=== PATIENT | female | born 1970 | race Caucasian/White ===

== ENCOUNTER 2018-11-15 09:34 | Emergency (ER) | payer OTHER ==
--- OUTSIDE RECORDS SUMMARY | 2018-11-15 09:36 | XMS REPORT | Summary of Care ---
:1970 Author Organization [facility] - Health Address [address] [place] [address] Care Team Providers Name Role Phone Becky Boyd Primary Care Provider Reason for Referral Radiology Services (Routine) Status Reason Specialty Diagnoses / Referred By Referred To Procedures Contact Contact New Request Diagnostic Diagnoses Acute viral syndrome Herbie Rubalcava, Radiology Procedures XR CHEST 1 VW DO [address] [place] [address]. [address] [place] [id number] Radiology Services (Routine) Status Reason Specialty Diagnoses / Referred By Referred To Procedures Contact Contact New Request Diagnostic Diagnoses Acute viral syndrome Herbie Rubalcava, Radiology Procedures XR CHEST 1 VW DO [address] [place] [address]. [address] [place] [address] Reason for Visit Reason Comments Cough Auth/Cert Status Reason Specialty Diagnoses / Referred By Referred To Procedures Contact Contact [facility] [address] [place] [address] [place] [address] Encounter Details Date Type Department Care Team Description 11/02/2018 Emergency [facility] Herbie Rubalcava DO Acute viral syndrome (Primary Dx); Department [address] [place] [address]. Pharyngitis, unspecified etiology [address] [place] [address] Dr MOREIRA [address] [place] [address] [place], [place] [id number] Allergies Active Allergy Reactions Severity Noted Date Comments Clarithromycin Palpitations 01/09/2015 Clindamycin Palpitations 01/09/2015 Erythromycin Palpitations 01/09/2015 Penicillin Unknown - See comments 01/09/2015 Azithromycin Palpitations 01/09/2015 documented as of this encounter (statuses as of 11/02/2018) Medications Medication Sig Dispensed Refills Start Date End Date Status busPIRone (BUSPAR) 10 mg Take 1 Tab by 90 Tab 12 01/17/2015 Active tabletIndications: mouth 3 (three) Anxiety attack times daily. propranolol (INDERAL) 10 Take daily prn 30 Tab 5 01/17/2015 Active mg tabletIndications: panic attacks Anxiety attack with tachycardia omeprazole (PRILOSEC) 40 Take 1 Cap by 30 Cap 12 03/15/2015 Active mg capsuleIndications: mouth daily. Gastroesophageal reflux disease without esophagitis SERTraline (ZOLOFT) 25 Take 1 Tab by 30 Tab 12 03/15/2015 Active mg tabletIndications: mouth daily. Anxiety chlorpheniramine 4 mg Take 1 tablet by 30 tablet 0 11/02/2018 Active tabletIndications: Acute mouth every 6 viral syndrome (six) hours as needed for Allergies or Runny nose. naproxen sodium (ANAPROX Take 1 tablet by 30 tablet 0 11/02/2018 Active DS) 550 mg mouth 2 (two) tabletIndications: Acute times daily with viral syndrome meals. methylPREDNISolone Take by mouth 21 Each 0 11/02/2018 Active (MEDROL, SAMIR,) 4 mg SEE-INSTRUCTIONS tabletsIndications: . follow package Acute viral syndrome directions benzonatate 100 mg Take 1 capsule 14 capsule 0 11/02/2018 Active capsuleIndications: by mouth 3 Acute viral syndrome (three) times daily as needed for Cough. documented as of this encounter (statuses as of 11/02/2018) Active Problems Problem Noted Date Anxiety 01/17/2015 Gastroesophageal reflux disease without esophagitis 01/17/2015 documented as of this encounter (statuses as of 11/02/2018) Social History Tobacco Use Types Packs/Day Years Used Date Current Every Day Smoker Cigarettes 0.5 20 Smokeless Tobacco: Never Used Alcohol Use Drinks/Week oz/Week Comments Yes 6 Cans of beer 3.6 0 Standard drinks or equivalent Sex Assigned at Date Recorded Not on file Job Start Date Occupation Industry Not on file Not on file Not on file Travel History Travel Start Travel End No recent travel history available. documented as of this encounter Last Filed Vital Signs Vital Sign Reading Time Taken Comments Blood Pressure 105/60 11/02/2018 6:04 AM CDT Pulse 69 11/02/2018 6:04 AM CDT Temperature 36.6 C (97.8 F) 11/02/2018 6:04 AM CDT Respiratory Rate 20 11/02/2018 6:04 AM CDT Oxygen Saturation 97% 11/02/2018 6:04 AM CDT Inhaled Oxygen Concentration - - Weight 57.6 kg (127 lb) 11/02/2018 6:05 AM CDT Height - - Body Mass Index 23.23 03/15/2015 11:22 AM [employer] documented in this encounter Discharge Instructions Herbie Castellanos DO - 11/02/2018 DIAGNOSIS Diagnoses that have been ruled out: None Diagnoses that are still under consideration: None Final diagnoses: Pharyngitis, unspecified etiology Acute viral syndrome NO LIFE-THREATENING FINDINGS ON TODAY'S EXAM. PROCEDURES IN THE ER TODAY: Orders Placed This Encounter Procedures XR CHEST 1 VW RAPID STREP SCREEN FOR GROUP A MEDICATIONS ADMINISTERED IN THE ER TODAY AND DISCHARGE MEDICATIONS: Orders Placed This Encounter Medications dexamethasone (DECADRON PHOSPHATE) injection 10 mg chlorpheniramine 4 mg tablet naproxen sodium (ANAPROX DS) 550 mg tablet methylPREDNISolone (MEDROL, SAMIR,) 4 mg tablets benzonatate 100 mg capsule FOLLOW-UP RECOMMENDATIONS: RECOMMEND FOLLOW-UP WITH A PRIMARY CARE PROVIDER OR SPECIALIST IN 2-5 DAYS, ESPECIALLY IF NO IMPROVEMENT IN SYMPTOMS. MAY FOLLOW-UP WITH A PROVIDER OF YOUR CHOICE, SUCH : 1. A PHYSICIAN OF YOUR CHOICE 2. [facility], . LOCATIONS IN [facility] 3. [facility], [address] [place] [address]; OR, IF YOU WISH TO FOLLOW-UP WITHIN THE [facility], MAY TRY THESE OPTIONS (CLINIC APPOINTMENTS AVAILABLE ON [id number] BASIS): 1. SCHEDULE AN APPOINTMENT ONLINE AT WWW[facility] 2. OR CALL THE [facility] ACCESS CENTER AT OR 3. OR CALL YOUR [facility] PHYSICIAN'S OFFICE DIRECTLY IF YOU ARE ALREADY AN ESTABLISHED [facility] PATIENT. RETURN TO ER FOR WORSENING OF SYMPTOMS. AttachmentsThe following attachments cannot be sent through Care Everywhere.Viral Syndrome (Adult) (Monegasque)documented in this encounter Plan of Treatment Name Type Priority Associated Diagnoses Date/Time XR CHEST 1 VW IMAGING Routine Acute viral syndrome 11/02/2018 6:36 AM CDT THROAT CULTURE LAB STAT Pharyngitis, unspecified 11/02/2018 6:13 AM CDT etiology Name Type Priority Associated Diagnoses Order Schedule THROAT CULTURE LAB Routine Pharyngitis, unspecified ONCE for 1 Occurrences etiology starting 11/02/2018 until 11/02/2018 Health Maintenance Due Date Last Done Comments PNEUMOCOCCAL 0-64 YEARS COMBINED SERIES (1 of - 1977 PPSV23) DTaP,Tdap,and Td Vaccines (1 - Tdap) 1990 PAP SMEAR 01/02/1992 MAMMOGRAM 2011 INFLUENZA VACCINE 11/29/2018 documented as of this encounter Procedures Procedure Name Priority Date/Time Associated Diagnosis Comments XR CHEST 1 VW Routine 11/02/2018 6:36 AM CDT Acute viral syndrome Procedure Note - [facility], Radiant Results Inft User - 11/02/2018 6:39 AM CDT * * * * * * * * ORIGINAL REPORT * * * * * * * * EXAM: XR CHEST 1 VW COMPARISON: 01/11/2015 HISTORY: cough FINDINGS: Lungs: The lungs are clear. No pleural effusion or pneumothorax is identified. Heart/Mediastinum: The cardiomediastinal silhouette is normal in size. Bones: No acute osseous abnormality is seen. IMPRESSION No radiographic evidence of acute cardiopulmonary process. RAPID STREP SCREEN STAT 11/02/2018 6:13 AM Pharyngitis, Results for this FOR GROUP A CDT unspecified etiology procedure are in the results section. NOTICE OF PRIVACY Routine 11/02/2018 5:57 AM PRACTICES CDT documented in this encounter Results RAPID STREP SCREEN FOR GROUP A (11/02/2018 6:13 AM CDT) Streptococcus pyogenes Negative Negative [facility] (group A) antigen [facility] Specimen Swab - THROAT Performing Organization Address City/State/Zipcode Phone Number [facility] CLIA: [id number], [address] [place] [address] documented in this encounter Visit Diagnoses Diagnosis Acute viral syndrome - Primary Pharyngitis, unspecified etiology documented in this encounter Administered Medications Medication Order MAR Action Action Date Dose Rate Site dexamethasone (DECADRON PHOSPHATE) Given 11/02/2018 6:14 AM CDT 10 mg injection 10 mg 10 mg, Oral, ONCE, 1 dose, 11/02/18 at 0715, Routine documented in this encounter documented as of this encounter
--- OUTSIDE RECORDS SUMMARY | 2018-11-15 09:36 | XMS REPORT ---
:1970 [facility] Address [address] [place] [address] Dr. Iqbal [address] [place] [address] Care Team Providers Name Role Phone Unavailable Unavailable Unavailable Problems This patient has no known problems. Allergies, Adverse Reactions, Alerts This patient has no known allergies or adverse reactions. Medications This patient has no known medications.
--- OUTSIDE RECORDS SUMMARY | 2018-11-15 09:37 | XMS REPORT ---
:1970 Author Organization [employer] Care Team Providers Name Role Phone Aakash Becky Provider Role Unavailable Allergies, Adverse Reactions, Alerts Substance Reaction Event Type clindamycin Info Not Available Drug Allergy PCN Info Not Available Drug Allergy Erythromycin Info Not Available Drug Allergy Problems Problem Type Condition Code Onset Dates Condition Status Problem Postnasal drip R09.82 Active Problem History of gastritis Z87.19 Active Assessment History of gastritis Z87.19 Active Assessment Epigastric pain R10.13 Active Assessment Postnasal drip R09.82 Active Assessment Depression with anxiety F41.8 Active Problem Anxiety F41.9 Active Problem Depression F32.9 Active Problem Hyperlipidemia E78.5 Active Problem Cancer C80.1 Active Problem Sinus problem J34.9 Active Problem Epigastric pain R10.13 Active Problem Depression with anxiety F41.8 Active Medications Medication Code Code Instructions Start End Status Dosage System Date Date BusPIRone HCl ND 31901956521 7.5 MG Orally Nov 10, Active 1 tablet Twice a day 2018 as needed for anxiety Clonazepam ND 81253907910 0.5 MG Orally Active 1 tablet Once a day at bedtime Sertraline HCl ND 27747974172 100 MG Orally Active 1 tablet Once a day Omeprazole ND 31132189660 20 MG Orally Nov 10, Active 1 capsule Once a day 2018 Results No Known Results Summary Purpose [employer] Submission
--- OUTSIDE RECORDS SUMMARY | 2018-11-15 09:37 | XMS REPORT | Summary of Care ---
:1970 Author Organization [facility] - Health Address [address] [place] [address] Care Team Providers Name Role Phone Becky Boyd Suha Primary Care Provider Reason for Referral Radiology Services (STAT) Status Reason Specialty Diagnoses / Referred By Referred To Procedures Contact Contact New Request Diagnostic Diagnoses Chest pain, unspecified type Deshawn Piña, Radiology Procedures XR ABDOMEN ACUTE SERIES [address] [place] [address] [address] [place] [address] Radiology Services (STAT) Status Reason Specialty Diagnoses / Referred By Referred To Procedures Contact Contact New Request Diagnostic Diagnoses Chest pain, unspecified type Deshawn Piña, Radiology Procedures XR ABDOMEN ACUTE SERIES [address] [place] [address] [place] [address] Reason for Visit Reason Comments Chest Pain Auth/Cert Status Reason Specialty Diagnoses / Referred By Referred To Procedures Contact Contact [facility] [address] [place] [address] [place] [address] Encounter Details Date Type Department Care Team Description 11/13/2018 Emergency [facility] Deshawn Piña MD Chest pain, Department [address] [place] [address] unspecified type [address] [place] [address] [address] (Primary Dx) [place] [address] [place] [address] [phone] Allergies Active Allergy Reactions Severity Noted Date Comments Clarithromycin Palpitations 01/09/2015 Clindamycin Palpitations 01/09/2015 Erythromycin Palpitations 01/09/2015 Penicillin Unknown - See comments 01/09/2015 Azithromycin Palpitations 01/09/2015 documented as of this encounter (statuses as of 11/13/2018) Medications Medication Sig Dispensed Refills Start Date [...] (three) times daily as needed for Cough. sucralfate 1 gram Take 1 tablet by 30 tablet 0 11/13/2018 Active tabletIndications: Chest mouth before pain, unspecified type meals and at bedtime. ondansetron 4 mg Take 1 tablet by 20 tablet 0 11/13/2018 Active disintegrating mouth every 4 tabletIndications: Chest (four) hours as pain, unspecified type needed for Nausea and Vomiting (N/V). Pantoprazole (PROTONIX) Take 40 mg by 30 mg 0 11/13/2018 Active 40 mg delayed-release mouth daily. suspensionIndications: Chest pain, unspecified type documented as of this encounter (statuses as of 11/13/2018) Active Problems Problem Noted Date Anxiety 01/17/2015 Gastroesophageal reflux disease without esophagitis 01/17/2015 documented as of this encounter (statuses as of 11/13/2018) Social History Tobacco Use Types Packs/Day Years [...] Sign Reading Time Taken Comments Blood Pressure 110/71 11/13/2018 10:07 AM CDT Pulse 66 11/13/2018 10:07 AM CDT Temperature 36.5 C (97.7 F) 11/13/2018 7:41 AM CDT Respiratory Rate 16 11/13/2018 10:07 AM CDT Oxygen Saturation 97% 11/13/2018 10:07 AM CDT Inhaled Oxygen Concentration - - Weight 60.8 kg (134 lb) 11/13/2018 7:41 AM CDT Height - - Body Mass Index 24.51 03/15/2015 11:22 AM HOME COMPANION documented in this encounter Discharge Instructions InstructionsNeDeshawn maya MD - 11/13/2018 RETURN FOR ANY QUESTIONS OR CONCERNS Today you were seen by Deshawn Piña Jr., MD You were seen today for Chief Complaint Patient presents with Chest Pain Your ER diagnosis was ICD-10-CM ICD-9-CM 1. Chest pain, unspecified type R07.9 786.50 NO LIFE-THREATENING FINDINGS ON TODAY'S EXAM. YOUR PRESCRIPTIONS : Check out [employer] for medication discounts Medication List ASK your doctor about these medications benzonatate 100 mg capsule Commonly known as: TESSALON PERLES Take 1 capsule by mouth 3 (three) times daily as needed for Cough. busPIRone 10 mg tablet Commonly known as: BUSPAR Take 1 Tab by mouth 3 (three) times daily. chlorpheniramine 4 mg tablet Commonly known as: CHLOR-TRIMETON Take 1 tablet by mouth every 6 (six) hours as needed for Allergies or Runny nose. methylPREDNISolone 4 mg tablets Commonly known as: MEDROL (SAMIR) Take by mouth SEE-INSTRUCTIONS. follow package directions naproxen sodium 550 mg tablet Commonly known as: ANAPROX DS Take 1 tablet by mouth 2 (two) times daily with meals. omeprazole 40 mg capsule Commonly known as: PRILOSEC Take 1 Cap by mouth daily. propranolol 10 mg tablet Commonly known as: INDERAL Take daily prn panic attacks with tachycardia SERTraline 25 mg tablet Commonly known as: ZOLOFT Take 1 Tab by mouth daily. ER precautions and follow up : 1. Return to ER if your symptoms should worsen or fail to improve within 72 hours. 2. The care provided in the emergency room was for acute problems only. 3. You should follow up with your primary care provider within 72 hours. 4. Fill and take all your medications as prescribed. 5. Make sure you are staying adequately hydrated. Busque attencion immediatamente si usted tiene los sitomas sigue, vuelve peor o si hay sitomas nuevas o para cualquiera preoccupacion incluyendo dolor del pecho , falta aire, se siente debile, mas fievre, mas dolor, nausea, vomitando, sangrando que no es normal, confusion, baja or pierdas conciencia. MAY FOLLOW-UP WITH A PROVIDER OF YOUR CHOICE, SUCH : 1. A PHYSICIAN OF YOUR CHOICE 2. [facility], . LOCATIONS IN [facility] 3. [facility], [address] [place] [address]; OR, IF YOU WISH TO FOLLOW-UP WITHIN THE [facility], MAY TRY THESE OPTIONS (CLINIC APPOINTMENTS AVAILABLE ON [id number]-[id number] BASIS): 1. SCHEDULE AN APPOINTMENT ONLINE AT WWW[facility] 2. OR CALL THE [facility] AT OR 3. OR CALL YOUR [facility] PHYSICIAN'S OFFICE DIRECTLY IF YOU ARE ALREADY AN ESTABLISHED [facility] PATIENT. [facility] RETURN TO WORK / SCHOOL EXCUSE Tyra Kidd WAS SEEN IN THE ER AND DISCHARGED 11/13/2018 TODAY, 10:11 AM & May return to Work / School / Incarceration on X with activity as tolerated indicated below. ___The following limitations apply until pt is seen by Physician and cleared to return to normal activity. _X_ Off for two days and return to activity as tolerated at work or school ___ No Sports ___ No work ___ Do not return until fever free for 24 hours. ___ No school DESHAWN PIÑA Jr., MD [facility] DEPRT[facility] [address] [place] [address] [address] [address] ### The patient may have been given Narcotic pain medications during their stay in the ED that may show up on a Drug Screen. The hospital discharge paper work will identify these medications. documented in this encounter Plan of Treatment Health Maintenance Due Date Last Done Comments PNEUMOCOCCAL 0-64 YEARS COMBINED SERIES (1 of - 1977 PPSV23) DTaP,Tdap,and Td Vaccines (1 - Tdap) 1990 PAP SMEAR 01/02/1992 MAMMOGRAM 2011 INFLUENZA VACCINE (#1) 2018 documented as of this encounter Procedures Procedure Name Priority Date/Time Associated Diagnosis Comments XR ABDOMEN ACUTE STAT 11/13/2018 9:51 Chest pain, Results for this SERIES AM CDT unspecified type procedure are in the results section. CBC WITH DIFFERENTIAL STAT 11/13/2018 7:53 Chest pain, Results for this AM CDT unspecified type procedure are in the results section. ACTIVATED PARTIAL STAT 11/13/2018 7:53 Chest pain, Results for this THRMPLAS EDUARDO AM CDT unspecified type procedure are in the results section. PROTHROMBIN TIME / STAT 11/13/2018 7:53 Chest pain, Results for this INR AM CDT unspecified type procedure are in the results section. CBC WITH DIFF Routine 11/13/2018 7:53 Chest pain, Results for this AM CDT unspecified type procedure are in the results section. COMP. METABOLIC PANEL STAT 11/13/2018 7:53 Chest pain, Results for this (66088) AM CDT unspecified type procedure are in the results section. TROPONIN I STAT 11/13/2018 7:53 Chest pain, Results for this AM CDT unspecified type procedure are in the results section. LIPASE STAT 11/13/2018 7:53 Chest pain, Results for this AM CDT unspecified type procedure are in the results section. EKG-12 LEAD STAT 11/13/2018 7:52 AM CDT CONSENT/REFUSAL FOR Routine 11/13/2018 7:22 DIAGNOSIS AND AM CDT TREATMENT documented in this encounter Results XR ABDOMEN ACUTE SERIES (11/13/2018 9:51 AM CDT) Specimen Impressions Performed At FINDINGS/IMPRESSION: PACS/VR/DOSE The lungs are clear with no focal consolidation. No pleural effusion or pneumothorax is present. The heart is normal in size. The bowel gas pattern is non-obstructive. No evidence of free intra-abdominal air is present. A tiny calcified stone projects over the right kidney shadow, which may representnephrolithiasis. I reviewed this study and agree. Eliezer Lagos MD., have reviewed this study and agree with the above report. Narrative Performed At * * * * * * * * ORIGINAL REPORT * * * * * * * * PACS/VR/DOSE EXAM: XR ABDOMEN ACUTE SERIES HISTORY: 48 years-old Female presenting with vomiting COMPARISON: Chest x-ray on 11/02/2018. Procedure Note [facility], Radiant Results Inft User - 11/13/2018 10:19 AM CDT * * * * * * * * ORIGINAL REPORT * * * * * * * * EXAM: XR ABDOMEN ACUTE SERIES HISTORY: 48 years-old Female presenting with vomiting COMPARISON: Chest x-ray on 11/02/2018. IMPRESSION FINDINGS/IMPRESSION: The lungs are clear with no focal consolidation. No pleural effusion or pneumothorax is present. The heart is normal in size. The bowel gas pattern is non-obstructive. No evidence of free intra-abdominal air is present. A tiny calcified stone projects over the right kidney shadow, which may represent nephrolithiasis. I reviewed this study and agree. Eliezer Lagos MD., have reviewed this study and agree with the above report. Performing Organization Address City/State/Zipcode Phone Number PACS/VR/DOSE CBC WITH DIFFERENTIAL (11/13/2018 7:53 AM CDT) WBC 9.88 4.30 - 11.10 [facility] 10*3/L [facility] RBC 4.57 3.93 - 5.25 [facility] 10*6/L [facility] HGB 14.6 11.6 - 15.0 [facility] g/dL [facility]PITAL [facility] HCT 42.6 35.7 - 45.2 % [facility] MCV 93.2 80.6 - 95.5 fL [facility] MCH 31.9 25.9 - 32.8 pg [facility] MCHC 34.3 31.6 - 35.1 [facility] g/dL [facility] RDW-SD 41.2 39.0 - 49.9 fL [facility] RDW-CV 12.0 12.0 - 15.5 % [facility] PLT 285 166 - 358 [facility] 10*3/L [facility] MPV 9.8 9.5 - 12.9 fL [facility] NRBC/100 WBC 0.0 0.0 - 10.0 /100 [facility] WBCs [facility] NRBC x10^3 <0.01 10*3/L [facility] GRAN MAT (NEUT) % 79.8 % [facility] IMM GRAN % 0.40 % [facility] LYMPH % 14.9 % [facility] MONO % 4.1 % [facility] EOS % 0.4 % [facility] BASO % 0.4 % [facility] GRAN MAT x10^3(ANC) 7.88 (H) 1.88 - 7.09 [facility] 10*3/uL [facility] IMM GRAN x10^3 0.04 0.00 - 0.06 [facility] 10*3/uL [facility] LYMPH x10^3 1.47 1.32 - 3.29 [facility] 10*3/uL [facility] MONO x10^3 0.41 0.33 - 0.92 [facility] 10*3/uL [facility] EOS x10^3 0.04 0.03 - 0.39 [facility] 10*3/uL [facility] BASO x10^3 0.04 0.01 - 0.07 [facility] 10*3/uL [facility] Specimen Blood - ARM, RIGHT Performing Organization Address City/State/Zipcode Phone Number [facility] CLIA: [id number], [address] [place] [address] LIPASE, SERUM (11/13/2018 7:53 AM CDT) LIPASE 66 0 - 220 U/L [facility] Specimen Blood - ARM, RIGHT Performing Organization Address City/State/Zipcode Phone Number [facility] CLIA: [id number], [address] [place] [address] COMP. METABOLIC PANEL ([id number]) (11/13/2018 7:53 AM CDT) NA 144 135 - 145 [facility] mmol/L [facility] K 3.9 3.5 - 5.0 [facility] mmol/L [facility] CL 108 98 - 108 mmol/L [facility] CO2 TOTAL 26 23 - 31 mmol/L [facility] AGAP 10 2 - 16 [facility] BUN 7 7 - 23 mg/dL [facility] GLUCOSE 125 (H) 70 - 110 mg/dL [facility] CREATININE 0.69 0.50 - 1.04 [facility] mg/dL [facility] TOTAL BILI 0.5 0.1 - 1.1 mg/dL [facility] CALCIUM 8.9 8.6 - 10.6 [facility] mg/dL [facility] T PROTEIN 7.5 6.3 - 8.2 g/dL [facility] ALBUMIN 4.4 3.5 - 5.0 g/dL [facility] ALK PHOS 106 34 - 122 U/L [facility] ALT(SGPT) 37 9 - 51 U/L [facility] AST(SGOT) 24 13 - 40 U/L [facility] eGFR Calculation 91.2 mL/min/1.73m2 [facility] ([facility]ATORY [place]) eGFR Calculation 110.5 mL/min/1.73m2 [facility] () [facility] Specimen Blood - ARM, RIGHT Narrative Performed At Association of Glomerular Filtration Rate (GFR) [facility] and Staging of Kidney Disease* + + +- + | GFR (mL/min/1.73 m2)| With Kidney Damage|Without Kidney Damage + + +- + |>90| Stage one| Normal + + +- + |60-89|S tage two| Decreased GFR + + +- + |30-59|S tage three| Stage three + + +- + |15-29|S tage four | Stage four + + +- + |<15 (or dialysis)|Stage five | Stage five + + +- + *Each stage assumes the associated GFR level has been in effect for at least three months.Stages 1 to 5, with or without kidney disease, indicate chronic kidney disease. Notes: Determination of stages one and two (with eGFR >59mL/min/1.73 m2) requires estimation of kidney damage for at least three months as defined by structural or functional abnormalities of the kidney, manifested by either: Pathological abnormalities or Markers of kidney damage (including abnormalities in the composition of the blood or urine or abnormalities in imaging tests). Performing Organization Address [facility] Phone Number [facility] CLIA: [id number], [address] [place], [place] [address] [address] PROTHROMBIN TIME / INR (11/13/2018 7:53 AM CDT) Pathologist [facility] PROTIME PATIENT 13.3 12.0 - 14.7 [facility] LABORATORY INR 1.1Comment: Normal [facility] INR <1.1; Warfarin [facility] Therapeutic range LABORATORY 2.0 to 3.0 or 2.5 to 3.5, depending upon the indications. Specimen Blood - ARM, RIGHT Performing Organization Address [facility] Phone Number [facility] CLIA: [id number], [address] [place] [address] aPTT (11/13/2018 7:53 AM CDT) [facility] APTT Patient 27 23 - 38 Seconds [facility] Specimen Blood - ARM, RIGHT Narrative Performed At The [facility] patient population mean normal value [facility] for aPTT is 30 seconds. Performing Organization Address [facility] Phone Number [facility] CLIA: [id number], [address] [place] [address] TROPONIN I (11/13/2018 7:53 AM CDT) [facility] TROPONIN I <0.012 <=0.034 ng/mL [facility] Specimen Blood - ARM, RIGHT Narrative Performed At Equal or Less than 0.034 ng/ml---Normal [facility] Note: Cardiac troponin begins to rise 3-4 hours after the onset of ischemia. Repeat in 4-6 hours if the sample was drawn within 3-4 hours of the onset of the symptom and found normal. Between 0.035 and 0.120 ng/mL--- Borderline. Questionable myocardial injury or necrosis Note: Serial measurement may be necessary to confirm or exclude the diagnosis of myocardial injury or necrosis; Clinical correlation (symptoms, EKGs, imaging studies, and others) required; Repeat in 4-6 hours if clinically indicated. Equal or Higher than 0.121 ng/mL---Abnormal. Myocardial Injury or Necrosis Likely Biotin has been reported to cause a negative bias, interpret results relative to patient's use of biotin. Performing Organization Address City/State/Zipcode Phone Number [facility] CLIA: [id number], [address] [place] [address] [facility] documented in this encounter Visit Diagnoses Diagnosis Chest pain, unspecified type - Primary documented in this encounter Administered Medications Medication Order MAR Action Action Date Dose Rate Site sodium chloride (NS) injection 5 mL 5 mL, Intravenous, PRN, Starting Fri11/13/18 at 0751, Until Discontinued, Routine, IV line flushing Medication Order MAR Action Action Date Dose Rate Site aspirin tablet 325 mg Given 11/13/2018 7:54 AM CDT 325 mg 325 mg, Oral, ONCE, 1 dose, Fri11/13/18 at 0800, STAT maalox:diphenhydrAMINE:lidocaine2 %viscous Given 11/13/2018 8:22 AM CDT 15 mL 1:1:1: suspension (COMPOUNDED) 15 mL, Oral, ONCE, 1 dose, Fri11/13/18 at 0915, ERIKA morpHINE injection 4 mg Given 11/13/2018 8:22 AM CDT 4 mg 4 mg, Slow IV Push, ONCE, 1 dose, Fri11/13/18 at 0915, STAT ondansetron (ZOFRAN (PF)) injection 4 mg Given 11/13/2018 7:57 AM CDT 4 mg 4 mg, Slow IV Push, ONCE, 1 dose, Fri11/13/18 at 0900, ERIKA documented in this encounter documented as of this encounter"
[2018-11-15] MEDS ORDERED: ONDANSETRON 4 MG/2 ML VIAL ONE (09:53)
[2018-11-15] MEDS ORDERED: NA CHLORIDE 0.9% 1,000 ML ONE (09:54)
[2018-11-15 10:18] LABS: Absolute Lymphocytes (CBC) 1.4 K/uL (0.7-4.9); Basophils % 0.3 % (0-1.3); Hematocrit 44.1 % (36.0-45.0); Lymphocytes % 20.4 % (15.3-44.8); MPV 8.5 fL (7.6-11.3); RBC Red Blood Cell Count 4.74 M/uL (3.86-4.86)
[2018-11-15] MEDS ORDERED: FENTANYL CITR 100 MCG/2 ML ONE (10:20)
[2018-11-15 10:27] LABS: Bilirubin Direct 0.1 mg/dL (0-0.2); Bilirubin Total 0.4 mg/dL (0.2-1.0); Potassium 3.9 mmol/L (3.5-5.1); Protein, Total 7.5 g/dL (6.4-8.2)
[2018-11-15 10:43] LABS: Urine Bacteria 20-50 /HPF (<20); Urine Culture Reflex Order NOT NEEDED; Urine RBC >50 /HPF (NONE SEEN)
[2018-11-15 11:55] LABS: Urine Blood 3+ (NEG); Urine Glucose NEGATIVE (NEG); Urine Protein NEGATIVE (NEG); Urine Specific Gravity 1.015 (1.005-1.030)
[2018-11-15] MEDS ORDERED: levoFLOXacin 500 MG TAB ONE (12:03)
[2018-11-15] MEDS ORDERED: DICYCLOMINE HCL 10 MG CAP ONE (12:03)
[2018-11-15] MEDS ORDERED: PROMETHAZINE 25 MG TABLET ONE (13:00)
--- NOTE | 2018-11-15 13:02 | ER ---
Nurse's Notes [facility] Name: Tyra Kidd Age: 48 yrs Sex: Female : 1970 Arrival Date: 11/15/2018 Time: 09:36 Bed 6 Private MD: Diagnosis: Unspecified abdominal pain;Colic;Urinary tract infection, site not specified Presentation: 11/15 09:43 Presenting complaint: N/V and upper abdominal pain x 2 weeks, constipation x 1 week. hb Denies fever. Tolerating fluids. Transition of care: patient was not received from another setting of care. Onset of symptoms was November 01, 2018. Risk Assessment: Do you want to hurt yourself or someone else? Patient reports no desire to harm self or others. Initial Sepsis Screen: Does the patient meet any 2 criteria? No. Patient's initial sepsis screen is negative. Does the patient have a suspected source of infection? No. Patient's initial sepsis screen is negative. Care prior to arrival: None. 09:43 Method Of Arrival: Ambulatory hb 09:43 Acuity: NADYA 3 hb Triage Assessment: 09:46 General: Appears in no apparent distress. uncomfortable, Behavior is calm, cooperative. hb Pain: Pain currently is 5 out of 10 on a pain scale. EENT: No signs and/or symptoms were reported regarding the EENT system. Neuro: Level of Consciousness is awake, alert, obeys commands, Oriented to person, place, time, situation. Cardiovascular: Capillary refill < 3 seconds Patient's skin is warm and dry. Respiratory: Airway is patent Respiratory effort is even, unlabored, Respiratory pattern is regular, symmetrical. GI: Abdomen is non-distended. : No signs and/or symptoms were reported regarding the genitourinary system. Derm: Skin is pink, warm \T\ dry. Musculoskeletal: No signs and/or symptoms reported regarding the musculoskeletal system. 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 - Social history:: Smoking status: Patient uses tobacco products, smokes one pack cigarettes per day. - Ebola Screening: : No symptoms or risks identified at this time. Screenin:58 Abuse screen: Denies threats or abuse. Denies injuries from another. Nutritional hb screening: No deficits noted. Tuberculosis screening: No symptoms or risk factors identified. Fall Risk None identified. Assessment: 09:58 General: see triage assessment. hb 10:59 Reassessment: Patient appears in no apparent distress at this time. Patient and/or hb family updated on plan of care and expected duration. Pain level reassessed. Patient is alert, oriented x 3, equal unlabored respirations, skin warm/dry/pink. Vital Signs: 09:47 BP 124 / 66; Pulse 82; Resp 16; Temp 97.6(TE); Pulse Ox 99% on R/A; Weight 60.33 kg; hb Height 5 ft. 2 in. (157.48 cm); Pain 5/10; 10:57 BP 118 / 62; Pulse 77; Resp 15; Pulse Ox 100% on R/A; Pain 1/10; hb 09:47 Body Mass Index 24.33 (60.33 kg, 157.48 cm) hb ED Course: 09:36 Patient arrived in ED. as 09:43 Shyanne Chou, FRANCISCO is Primary Nurse. hb 09:44 Triage completed. hb 09:47 Arm band placed on. hb 09:51 Rosa Bullock FNP-C is PHCP. snw 09:51 Elier Hernandez MD is Attending Physician. snw 09:58 Patient has correct armband on for positive identification. Bed in low position. Call hb light in reach. Side rails up X 1. 09:58 Inserted saline lock: 22 gauge in right antecubital area, using aseptic technique. sv ,using aseptic technique. diffusics by Angelica SINGH Blood collected. 10:04 Door closed. Warm blanket given. Head of bed elevated. sv 11:07 US Abdomen Limited In Process Unspecified. EDMS 11:08 Ultrasound completed. Patient tolerated well. sg3 13:14 EKG done, by ED staff, reviewed by Rosa SANTANA. jb1 13:23 No provider procedures requiring assistance completed. IV discontinued, intact, ss bleeding controlled, No redness/swelling at site. Pressure dressing applied. Administered Medications: 09:58 Drug: NS 0.9% 1000 ml Route: IV; Rate: 75 ml/hr; Site: right antecubital; hb 13:10 Follow up: IV Status: IV converted to saline lock ss 10:24 Drug: fentaNYL (PF) 25 mcg Route: IVP; Site: right antecubital; hb 11:10 Follow up: Response: No adverse reaction; RASS: Alert and Calm (0) hb 12:11 Drug: Bentyl 20 mg Route: PO; hb 13:00 Follow up: Response: No adverse reaction hb 12:11 Drug: LevaQUIN 500 mg Route: PO; hb 13:00 Follow up: Response: No adverse reaction hb 13:01 Drug: Phenergan 25 mg Route: PO; hb 13:10 Follow up: Response: No adverse reaction; Nausea is decreased ss 13:09 Drug: CarafATE 1 grams Route: PO; ss 13:11 Follow up: Response: No adverse reaction; Medication administered at discharge. ss Outcome: 13:01 Discharge ordered by . snw 13:23 Discharged to home ambulatory. ss 13:23 Condition: good 13:23 Discharge instructions given to patient, family, Instructed on discharge instructions, follow up and referral plans. medication usage, Demonstrated understanding of instructions, follow-up care, medications, Prescriptions given X 2. 13:25 Patient left the ED. ss Signatures: Dispatcher [employer] EDMS Dion Evans jb1 Angelica Long, Rosa Hopson RN, FNP-C FNP-Matilde Brewer Shelby, RN RN Shyanne Chou RN RN Rosalina Dasilva sg3 Corrections: (The following items were deleted from the chart) 10:00 09:58 Inserted saline lock: 20 gauge in right antecubital area, using aseptic sv technique. ,using aseptic technique. by Angelica SINGH Blood collected. hb
--- NOTE | 2018-11-15 13:03 | EDPHYS ---
Physician Documentation [facility] – [place], [place] Name: Tyra Kidd Age: 48 yrs Sex: Female : 1970 Arrival Date: 11/15/2018 Time: 09:36 Bed 6 Private MD: ED Physician Elier Hernandez HPI: 11/15 10:17 This 48 yrs old Female presents to ER via Ambulatory with complaints of snw Abdominal Pain, Constipation, Nausea/Vomiting. 10:17 Onset: The symptoms/episode began/occurred gradually, 1.5 week(s) ago. The symptoms do snw not radiate. Associated signs and symptoms: Pertinent positives: nausea and vomiting, constipation. The symptoms are described as constant, steady. Severity of pain: At its worst the pain was moderate severe in the emergency department the pain is unchanged. It is unknown whether or not the patient has had similar symptoms in the past. pt has had 2 PCP appts and 2 ED visits for same in last 1.5 weeks. 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 - Social history:: Smoking status: Patient uses tobacco products, smokes one pack cigarettes per day. - Ebola Screening: : No symptoms or risks identified at this time. ROS: 10:16 Constitutional: Negative for fever, chills, and weight loss, Eyes: Negative for injury, snw pain, redness, and discharge, ENT: Negative for injury, pain, and discharge, Neck: Negative for injury, pain, and swelling, Cardiovascular: Negative for chest pain, palpitations, and edema, Respiratory: Negative for shortness of breath, cough, wheezing, and pleuritic chest pain, Back: Negative for injury and pain, : Negative for injury, bleeding, discharge, and swelling, MS/Extremity: Negative for injury and deformity, Skin: Negative for injury, rash, and discoloration, Neuro: Negative for headache, weakness, numbness, tingling, and seizure. 10:16 Abdomen/GI: Positive for abdominal pain, nausea and vomiting, constipation, abdominal cramps. Exam: 10:16 Constitutional: This is a well developed, well nourished patient who is awake, alert, snw and in no acute distress. Head/Face: Normocephalic, atraumatic. Eyes: Pupils equal round and reactive to light, extra-ocular motions intact. Lids and lashes normal. Conjunctiva and sclera are non-icteric and not injected. Cornea within normal limits. Periorbital areas with no swelling, redness, or edema. ENT: Nares patent. No nasal discharge, no septal abnormalities noted. Tympanic membranes are normal and external auditory canals are clear. Oropharynx with no redness, swelling, or masses, exudates, or evidence of obstruction, uvula midline. Mucous membranes moist. Neck: Trachea midline, no thyromegaly or masses palpated, and no cervical lymphadenopathy. Supple, full range of motion without nuchal rigidity, or vertebral point tenderness. No Meningismus. Chest/axilla: Normal chest wall appearance and motion. Nontender with no deformity. No lesions are appreciated. Cardiovascular: Regular rate and rhythm with a normal S1 and S2. No gallops, murmurs, or rubs. Normal PMI, no JVD. No pulse deficits. Respiratory: Lungs have equal breath sounds bilaterally, clear to auscultation and percussion. No rales, rhonchi or wheezes noted. No increased work of breathing, no retractions or nasal flaring. Back: No spinal tenderness. No costovertebral tenderness. Full range of motion. Skin: Warm, dry with normal turgor. Normal color with no rashes, no lesions, and no evidence of cellulitis. MS/ Extremity: Pulses equal, no cyanosis. Neurovascular intact. Full, normal range of motion. Neuro: Awake and alert, GCS 15, oriented to person, place, time, and situation. Cranial nerves II-XII grossly intact. Motor strength 5/5 in all extremities. Sensory grossly intact. Cerebellar exam normal. Normal gait. Psych: Awake, alert, with orientation to person, place and time. Behavior, mood, and affect are within normal limits. 10:16 Abdomen/GI: Inspection: abdomen appears normal, Bowel sounds: normal, Palpation: moderate abdominal tenderness, in the right upper quadrant, Indicators: Gasca's sign is positive. Vital Signs: 09:47 BP 124 / 66; Pulse 82; Resp 16; Temp 97.6(TE); Pulse Ox 99% on R/A; Weight 60.33 kg; hb Height 5 ft. 2 in. (157.48 cm); Pain 5/10; 10:57 BP 118 / 62; Pulse 77; Resp 15; Pulse Ox 100% on R/A; Pain 1/10; hb 09:47 Body Mass Index 24.33 (60.33 kg, 157.48 cm) hb MDM: 09:56 Patient medically screened. snw 13:03 Data reviewed: vital signs, nurses notes. Data interpreted: Pulse oximetry: on room air snw is 100 %. Counseling: I had a detailed discussion with the patient and/or guardian regarding: the historical points, exam findings, and any diagnostic results supporting the discharge/admit diagnosis, lab results, radiology results, the need for outpatient follow up, to return to the emergency department if symptoms worsen or persist or if there are any questions or concerns that arise at home. Special discussion: Based on the patient's Hx, exam, and Dx evaluation, there is no indication for emergent surgery or inpatient Tx. It is understood by the patient/guardian that if the Sx's persist or worsen they need to return immediately for re-evaluation. Based on the history and exam findings, there is no indication for further emergent testing or inpatient evaluation. I discussed with the patient/guardian the need to see the animal hospital office supervisor for further evaluation of the symptoms. I discussed with the patient/guardian the need to see the general surgeon for further evaluation of the symptoms. I discussed with the patient/guardian the need to see the primary care provider for further evaluation of the symptoms. 11/15 09:51 Order name: Basic Metabolic Panel; Complete Time: 10:30 snw 11/15 09:51 Order name: CBC with Diff; Complete Time: 10:23 snw 11/15 09:51 Order name: Creatinine for Radiology; Complete Time: 10:30 snw 11/15 09:51 Order name: Hepatic Function; Complete Time: 10:30 snw 11/15 09:51 Order name: Lipase; Complete Time: 10:30 snw 11/15 09:51 Order name: Urine Culture [facility] 11/15 09:51 Order name: US Abdomen Limited; Complete Time: 13:24 sn 11/15 09:51 Order name: Urine Microscopic Only; Complete Time: 10:48 [facility] 11/15 11:11 Order name: Urine Dipstick--Ancillary (enter results); Complete Time: 11:56 eb 11/15 09:51 Order name: Labs collected and sent; Complete Time: 09:58 snw 11/15 09:51 Order name: Urine Dipstick-Ancillary (obtain specimen); Complete Time: 10:24 sn 11/15 11:52 Order name: PO challenge; Complete Time: 12:56 [facility] 11/15 13:10 Order name: EKG; Complete Time: 13:11 ss 11/15 13:10 Order name: EKG - Nurse/Tech; Complete Time: 13:10 ss Administered Medications: 09:58 Drug: NS 0.9% 1000 ml Route: IV; Rate: 75 ml/hr; Site: right antecubital; hb 13:10 Follow up: IV Status: IV converted to saline lock ss 10:24 Drug: fentaNYL (PF) 25 mcg Route: IVP; Site: right antecubital; hb 11:10 Follow up: Response: No adverse reaction; RASS: Alert and Calm (0) hb 12:11 Drug: Bentyl 20 mg Route: PO; hb 13:00 Follow up: Response: No adverse reaction hb 12:11 Drug: LevaQUIN 500 mg Route: PO; hb 13:00 Follow up: Response: No adverse reaction hb 13:01 Drug: Phenergan 25 mg Route: PO; hb 13:10 Follow up: Response: No adverse reaction; Nausea is decreased ss 13:09 Drug: CarafATE 1 grams Route: PO; ss 13:11 Follow up: Response: No adverse reaction; Medication administered at discharge. ss Disposition: 11/15/18 13:01 Discharged to Home. Impression: Unspecified abdominal pain, Colic, Urinary tract infection, site not specified. - Condition is Stable. - Discharge Instructions: Abdominal Pain, Adult, Biliary Colic, Adult, Fat and Cholesterol Restricted Diet, Urinary Tract Infection, Adult, Rehydration, Adult. - Prescriptions for Bentyl 20 mg Oral Tablet - take 1 tablet by ORAL route every 6 hours As needed; 20 tablet. Cipro 500 mg Oral Tablet - take 1 tablet by ORAL route every 12 hours for 7 days; 14 tablet. - Medication Reconciliation Form, Thank You Letter, Antibiotic Education, Prescription Opioid Use, Work release form form. - Follow up: Private Physician; When: 1 - 2 days; Reason: Recheck today's complaints, Continuance of care, Re-evaluation by your physician. Follow up: Emergency Department; When: As needed; Reason: Worsening of condition. Addendum: 11/17/2018 15:19 Co-signature as Attending Physician, Elier Hernandez MD. g s Signatures: Dispatcher [employer] EDMS Rosa Bullock, MANJU-C FINISHING MACHINE OPERATOR-Madyson Kim RN RN ss Baxter, Heather, RN RN hb Starr, Gregory, MD MD Corrections: (The following items were deleted from the chart) 11/15 13:01 13:01 11/15/2018 13:01 Discharged to Home. Impression: Unspecified abdominal pain; snw Colic. Condition is Stable. Forms are Medication Reconciliation Form, Thank You Letter, Antibiotic Education, Prescription Opioid Use. Follow up: Private Physician; When: 1 - 2 days; Reason: Recheck today's complaints, Continuance of care, Re-evaluation by your physician. Follow up: Emergency Department; When: As needed; Reason: Worsening of condition. snw 13:25 13:01 11/15/2018 13:01 Discharged to Home. Impression: Unspecified abdominal pain; ss Colic; Urinary tract infection, site not specified. Condition is Stable. Forms are Medication Reconciliation Form, Thank You Letter, Antibiotic Education, Prescription Opioid Use. Follow up: Private Physician; When: 1 - 2 days; Reason: Recheck today's complaints, Continuance of care, Re-evaluation by your physician. Follow up: Emergency Department; When: As needed; Reason: Worsening of condition. snw
[2018-11-15] MEDS ORDERED: SUCRALFATE 1 GM TABLET ONE (13:07)
--- NOTE | 2018-11-15 13:22 | RAD REPORT ---
EXAM DESCRIPTION: US - Abdomen Exam Limited - 11/15/2018 11:08 am CLINICAL HISTORY: Abdominal pain. COMPARISON: 2018 FINDINGS: The gallbladder wall is not thickened. A gallstone is not seen. The biliary tree is normal caliber. IMPRESSION: Unremarkable gallbladder ultrasound.
--- NOTE | 2018-11-16 07:53 | EKG ---
Test Date: 2018-11-15 Test Time: 13:10:15 Beer Runner: NOHEMY MEASUREMENT RESULTS: Intervals: Rate: 73 OH: 126 QRSD: 82 QT: 398 QTc: 438 Glady: P: 38 OH: 126 QRS: 85 T: 44 INTERPRETIVE STATEMENTS: Normal sinus rhythm Normal ECG Compared to ECG 04/05/2000 19:51:00 Right-axis deviation no longer present Electronically Signed On 11-16-18 07:53:07 CDT by Brandan Oliver
== END 2018-11-15 13:25 | disposition home or self-care (01) ==
LOC: ER 09:34
DX: R10.84 Generalized abdominal pain (principal); N39.0 Urinary tract infection, site not specified; F17.210 Nicotine dependence, cigarettes, uncomplicated; Z85.41 Personal history of malignant neoplasm of cervix uteri; Z88.0 Allergy status to penicillin; Z88.1 Allergy status to other antibiotic agents; Z88.3 Allergy status to other anti-infective agents; Z91.013 Allergy to seafood
CPT/HCPCS: 96361; 93005; 87088; 85025; 87086; 80048; 36415; 80076; 83690; 76705; 96374; 99284; J3010; J7030; J2405; 81003; 81015; 87077; 87186

== ENCOUNTER 2018-11-24 06:17 | Emergency (ER) | payer OTHER ==
[2018-11-24] MEDS ORDERED: NA CHLORIDE 0.9% 1,000 ML ONE ×2 (06:42→09:14)
[2018-11-24] MEDS ORDERED: METOCLOPRAMIDE 10 MG/2mL INJ ONE (06:43)
[2018-11-24] MEDS ORDERED: NA CHLORIDE 0.9% 100 ML IV ONE (06:43)
[2018-11-24 07:58] LABS: Urine Blood 2+ (NEG); Urine Glucose NEGATIVE (NEG); Urine Protein NEGATIVE (NEG)
[2018-11-24 08:07] LABS: Urine Bacteria <20 /HPF (<20); Urine Culture Reflex Order NOT NEEDED
[2018-11-24] MEDS ORDERED: PROMETHAZINE 25 MG/ML VIAL ONE (10:13)
--- NOTE | 2018-11-24 10:28 | ER ---
Nurse's Notes [facility] Name: Tyra Kidd Age: 48 yrs Sex: Female : 1970 Arrival Date: 11/24/2018 Time: 06:19 Bed 7 Private MD: Becky Finn Diagnosis: Diarrhea, unspecified;Abdominal tenderness Presentation: 11/24 06:30 Presenting complaint: Patient states: have abdominal pain this morning, had a diarrhea rr5 watery green with black specs, i feel nauseated too. 3 weeks ago i came here with the same complaint referred to GI doctor, dr. essay scheduled me for endoscopy on Friday. Last Friday and Friday had i diarrhea yellow in color and burning feeling. 06:30 Transition of care: patient was not received from another setting of care. Onset of rr5 symptoms was November 24, 2018. Risk Assessment: Do you want to hurt yourself or someone else? Patient reports no desire to harm self or others. Initial Sepsis Screen: Does the patient meet any 2 criteria? No. Patient's initial sepsis screen is negative. Does the patient have a suspected source of infection? No. Patient's initial sepsis screen is negative. Care prior to arrival: Medication(s) given: protonix, zantac, bentyl. 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 - Social history:: Smoking status: Patient uses tobacco products, smokes one pack cigarettes per day. Patient uses alcohol, occasionally. Patient/guardian denies using street drugs. - Ebola Screening: : Patient negative for fever greater than or equal to 101.5 degrees Fahrenheit, and additional compatible Ebola Virus Disease symptoms Patient denies exposure to infectious person Patient denies travel to an Ebola-affected area in the 21 days before illness onset. Screenin:38 Abuse screen: Denies threats or abuse. Denies injuries from another. Nutritional rr5 screening: No deficits noted. Tuberculosis screening: No symptoms or risk factors identified. Fall Risk Total Coats Fall Scale indicates No Risk (0-24 pts). Assessment: 06:30 General: Appears in no apparent distress. uncomfortable, Behavior is calm, cooperative, rr5 appropriate for age. 06:30 Pain: Complains of pain in right lower quadrant Pain does not radiate. Pain currently rr5 is 5 out of 10 on a pain scale. Quality of pain is described as aching, Pain began gradually, Is intermittent. Neuro: Level of Consciousness is awake, alert, obeys commands, Oriented to person, place, time, situation, Appropriate for age. Cardiovascular: Capillary refill < 3 seconds Patient's skin is warm and dry. Respiratory: Airway is patent Respiratory effort is even, unlabored, Respiratory pattern is regular, symmetrical. GI: Abdomen is flat, Bowel sounds present X 4 quads. Abd is soft and non tender X 4 quads. Reports upper abdominal pain, diarrhea, nausea. : No signs and/or symptoms were reported regarding the genitourinary system. EENT: No signs and/or symptoms were reported regarding the EENT system. Derm: Skin is intact, Skin temperature is warm. Musculoskeletal: Circulation, motion, and sensation intact. Capillary refill < 3 seconds. 07:47 Reassessment: Patient appears in no apparent distress at this time. Patient and/or jl7 family updated on plan of care and expected duration. Pain level reassessed. Patient is alert, oriented x 3, equal unlabored respirations, skin warm/dry/pink. Patient states feeling better. Patient states symptoms have improved. 08:30 Reassessment: Patient appears in no apparent distress at this time. Patient and/or jl7 family updated on plan of care and expected duration. Pain level reassessed. Patient is alert, oriented x 3, equal unlabored respirations, skin warm/dry/pink. 09:44 Reassessment: Pt laying in bed with eyes closed, respirations even and unlabored, no jl7 signs of distress noted at this time. 10:19 Reassessment: Pt c/o nausea, ERP notified see MAR for orders. jl7 10:40 Reassessment: Patient states feeling better. Patient states symptoms have improved. jl7 Vital Signs: 06:30 BP 117 / 59; Pulse 93; Resp 17; Temp 97.7; Pulse Ox 97% ; Weight 60.33 kg; Height 5 ft. rr5 2 in. (157.48 cm); Pain 5/10; 07:47 BP 92 / 53; Pulse 62; Resp 16 S; Pulse Ox 98% on R/A; jl7 08:30 BP 93 / 53; Pulse 73; Resp 16 S; Pulse Ox 100% on R/A; jl7 09:44 BP 100 / 57; Pulse 65; Resp 16 S; Pulse Ox 99% on R/A; jl7 10:23 BP 107 / 60; Pulse 79; Resp 15 S; Pulse Ox 100% on R/A; jl7 06:30 Body Mass Index 24.33 (60.33 kg, 157.48 cm) rr5 ED Course: 06:19 Patient arrived in ED. am2 06:19 Becky Finn MD is Private Physician. am2 06:20 [facility] Bullock [facility]C [facility] snw 06:20 Chris Mackey MD is Attending Physician. snw 06:21 Yohannes Shearer RN is Primary Nurse. rr5 06:35 Triage completed. rr5 06:37 Arm band placed on. rr5 06:38 Patient has correct armband on for positive identification. Bed in low position. Call rr5 light in reach. Side rails up X2. Pulse ox on. NIBP on. 06:39 No provider procedures requiring assistance completed. rr5 06:56 Inserted saline lock: 20 gauge in right antecubital area, using aseptic technique. rr5 07:05 Chey Lynne, FRANCISCO is Primary Nurse. jl7 07:49 Urine collected: clean catch specimen, clear. jl7 10:27 Umer Munguia MD is Referral Physician. snw 11:22 IV discontinued, intact, bleeding controlled, No redness/swelling at site. Pressure iw dressing applied. Administered Medications: 06:57 Drug: NS 0.9% 1000 ml Route: IV; Rate: 1 bolus; Site: right antecubital; rr5 06:58 Drug: Reglan 10 mg Route: IVP; Site: right antecubital; rr5 07:48 Follow up: Response: No adverse reaction; Nausea is decreased jl7 06:58 Drug: NS 0.9% 100 ml Route: IV; Rate: 1 calculated rate; Site: right antecubital; rr5 07:49 Follow up: Response: No adverse reaction; IV Status: Completed infusion; IV Intake: jl7 100ml 09:16 Drug: NS 0.9% 1000 ml Route: IV; Rate: 1 bolus; Site: right antecubital; jl7 10:30 Follow up: Response: No adverse reaction; IV Status: Completed infusion; IV Intake: jl7 1000ml 10:20 Drug: Phenergan 6.25 mg Route: IVP; Site: right antecubital; jl7 10:40 Follow up: Response: No adverse reaction; Nausea is decreased jl7 Intake: 07:49 IV: 100ml; Total: 100ml. jl7 10:30 IV: 1000ml; Total: 1100ml. jl7 Outcome: 10:27 Discharge ordered by . snw 11:22 Discharged to home ambulatory, with family. iw 11:22 Condition: good 11:22 Discharge instructions given to patient, family, Instructed on discharge instructions, follow up and referral plans. medication usage, Demonstrated understanding of instructions, follow-up care, medications, Prescriptions given X 1. 11:22 Patient left the ED. iw Signatures: Rosa Bullock, INSPECTOR BALANCE WHEEL MOTION-C INSPECTOR BALANCE WHEEL MOTION-Csnw Dot Mejia RN RN iw Chey Lynne RN RN jl7 Abigail Gonzalez Raymond RN RN rr5
--- NOTE | 2018-11-24 10:28 | EDPHYS ---
Physician Documentation [facility] Name: Tyra Kidd Age: 48 yrs Sex: Female : 1970 Arrival Date: 11/24/2018 Time: 06:19 Bed 7 Private MD: Becky Finn ED Physician Chris Mackey HPI: 11/24 07:44 This 48 yrs old Female presents to ER via Ambulatory with complaints of snw Abdominal Pain. 07:44 The patient presents with abdominal pain in the right upper quadrant, right lower snw quadrant. Onset: The symptoms/episode began/occurred gradually, pt has been having abd pain for about 3 weeks, has seen GI multiple times, second ED visit. Pt and Spouse say her symptoms had gotten a little better until today at 0400. Pt states she has had some green loose stool with specks of black x 2 . The symptoms do not radiate. Associated signs and symptoms: Pertinent positives: diarrhea, nausea. The symptoms are described as constant. Severity of pain: At its worst the pain was moderate severe in the emergency department the pain is unchanged. as noted. as noted. 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 - Social history:: Smoking status: Patient uses tobacco products, smokes one pack cigarettes per day. Patient uses alcohol, occasionally. Patient/guardian denies using street drugs. - Ebola Screening: : Patient negative for fever greater than or equal to 101.5 degrees Fahrenheit, and additional compatible Ebola Virus Disease symptoms Patient denies exposure to infectious person Patient denies travel to an Ebola-affected area in the 21 days before illness onset. ROS: 07:43 Constitutional: Negative for fever, chills, and weight loss, Eyes: Negative for injury, snw pain, redness, and discharge, ENT: Negative for injury, pain, and discharge, Neck: Negative for injury, pain, and swelling, Cardiovascular: Negative for chest pain, palpitations, and edema, Respiratory: Negative for shortness of breath, cough, wheezing, and pleuritic chest pain, Back: Negative for injury and pain, : Negative for injury, bleeding, discharge, and swelling, MS/Extremity: Negative for injury and deformity, Skin: Negative for injury, rash, and discoloration, Neuro: Negative for headache, weakness, numbness, tingling, and seizure. 07:43 Abdomen/GI: Positive for abdominal pain, nausea, diarrhea. Exam: 07:42 Constitutional: This is a well developed, well nourished patient who is awake, alert, snw and in no acute distress. Head/Face: Normocephalic, atraumatic. Eyes: Pupils equal round and reactive to light, extra-ocular motions intact. Lids and lashes normal. Conjunctiva and sclera are non-icteric and not injected. Cornea within normal limits. Periorbital areas with no swelling, redness, or edema. ENT: Nares patent. No nasal discharge, no septal abnormalities noted. Tympanic membranes are normal and external auditory canals are clear. Oropharynx with no redness, swelling, or masses, exudates, or evidence of obstruction, uvula midline. Mucous membranes moist. Neck: Trachea midline, no thyromegaly or masses palpated, and no cervical lymphadenopathy. Supple, full range of motion without nuchal rigidity, or vertebral point tenderness. No Meningismus. Chest/axilla: Normal chest wall appearance and motion. Nontender with no deformity. No lesions are appreciated. Cardiovascular: Regular rate and rhythm with a normal S1 and S2. No gallops, murmurs, or rubs. Normal PMI, no JVD. No pulse deficits. Respiratory: Lungs have equal breath sounds bilaterally, clear to auscultation and percussion. No rales, rhonchi or wheezes noted. No increased work of breathing, no retractions or nasal flaring. Back: No spinal tenderness. No costovertebral tenderness. Full range of motion. Skin: Warm, dry with normal turgor. Normal color with no rashes, no lesions, and no evidence of cellulitis. MS/ Extremity: Pulses equal, no cyanosis. Neurovascular intact. Full, normal range of motion. Neuro: Awake and alert, GCS 15, oriented to person, place, time, and situation. Cranial nerves II-XII grossly intact. Motor strength 5/5 in all extremities. Sensory grossly intact. Cerebellar exam normal. Normal gait. Psych: Awake, alert, with orientation to person, place and time. Behavior, mood, and affect are within normal limits. 07:42 Abdomen/GI: Inspection: abdomen appears normal, Bowel sounds: normal, Palpation: moderate abdominal tenderness, in the right upper quadrant and right lower quadrant, voluntary guarding, no appreciated organomegaly. Vital Signs: 06:30 BP 117 / 59; Pulse 93; Resp 17; Temp 97.7; Pulse Ox 97% ; Weight 60.33 kg; Height 5 ft. rr5 2 in. (157.48 cm); Pain 5/10; 07:47 BP 92 / 53; Pulse 62; Resp 16 S; Pulse Ox 98% on R/A; jl7 08:30 BP 93 / 53; Pulse 73; Resp 16 S; Pulse Ox 100% on R/A; jl7 09:44 BP 100 / 57; Pulse 65; Resp 16 S; Pulse Ox 99% on R/A; jl7 10:23 BP 107 / 60; Pulse 79; Resp 15 S; Pulse Ox 100% on R/A; jl7 06:30 Body Mass Index 24.33 (60.33 kg, 157.48 cm) rr5 MDM: 06:21 Patient medically screened. snw 10:28 Data reviewed: vital signs, nurses notes. Data interpreted: Pulse oximetry: on room air snw is 100 %. Interpretation: normal. Counseling: I had a detailed discussion with the patient and/or guardian regarding: the historical points, exam findings, and any diagnostic results supporting the discharge/admit diagnosis, lab results, the need for outpatient follow up, to return to the emergency department if symptoms worsen or persist or if there are any questions or concerns that arise at home. Special discussion: Based on the patient's Hx, exam, and Dx evaluation, there is no indication for emergent surgery or inpatient Tx. It is understood by the patient/guardian that if the Sx's persist or worsen they need to return immediately for re-evaluation. Based on the history and exam findings, there is no indication for further emergent testing or inpatient evaluation. I discussed with the patient/guardian the need to see the distribution warehouse manager for further evaluation of the symptoms. 11/24 06:42 Order name: Urine Culture snw 11/24 06:42 Order name: Urine Microscopic Only; Complete Time: 08:19 snw 11/24 07:51 Order name: Urine Dipstick--Ancillary (enter results); Complete Time: 08:07 bd 11/24 07:51 Order name: Urine --Ancillary (enter results); Complete Time: 08:07 bd 11/24 06:42 Order name: Urine Dipstick-Ancillary (obtain specimen); Complete Time: 07:49 snw Administered Medications: 06:57 Drug: NS 0.9% 1000 ml Route: IV; Rate: 1 bolus; Site: right antecubital; rr5 06:58 Drug: Reglan 10 mg Route: IVP; Site: right antecubital; rr5 07:48 Follow up: Response: No adverse reaction; Nausea is decreased jl7 06:58 Drug: NS 0.9% 100 ml Route: IV; Rate: 1 calculated rate; Site: right antecubital; rr5 07:49 Follow up: Response: No adverse reaction; IV Status: Completed infusion; IV Intake: jl7 100ml 09:16 Drug: NS 0.9% 1000 ml Route: IV; Rate: 1 bolus; Site: right antecubital; jl7 10:30 Follow up: Response: No adverse reaction; IV Status: Completed infusion; IV Intake: jl7 1000ml 10:20 Drug: Phenergan 6.25 mg Route: IVP; Site: right antecubital; jl7 10:40 Follow up: Response: No adverse reaction; Nausea is decreased jl7 Disposition: 11/25 07:28 Co-signature as Attending Physician, Chris Mackey MD. ma2 Disposition: 11/24/18 10:27 Discharged to Home. Impression: Diarrhea, unspecified, Abdominal tenderness. - Condition is Stable. - Discharge Instructions: Food Choices to Help Relieve Diarrhea, Adult, Diarrhea, Adult, Rehydration, Adult. - Prescriptions for Reglan 10 mg Oral Tablet - take 1 tablet by ORAL route every 6 hours take 30 minutes before meals and at bedtime; 20 tablet. - Work release form, Medication Reconciliation Form, Thank You Letter, Antibiotic Education, Prescription Opioid Use, Family Work Release form. - Follow up: Emergency Department; When: As needed; Reason: Worsening of condition. Follow up: Umer Munguia MD; When: as scheduled; Reason: Recheck today's complaints, Continuance of care, Re-evaluation by your physician. Signatures: Dispatcher [employer] EDMS Rosa Bullock, [employer]-C STONE [employer]ICKMAN [employer]GER-Csnw Dot Mejia, RN RN iw Chey Lynne RN RN jl7 Chris Mackey MD MD ma2 Yohannes Shearer RN RN rr5 Corrections: (The following items were deleted from the chart) 11/24 11:22 10:27 11/24/2018 10:27 Discharged to Home. Impression: Diarrhea, unspecified; Abdominal iw tenderness. Condition is Stable. Forms are Medication Reconciliation Form, Thank You Letter, Antibiotic Education, Prescription Opioid Use. Follow up: Emergency Department; When: As needed; Reason: Worsening of condition. Follow up: Umer Munguia; When: as scheduled; Reason: Recheck today's complaints, Continuance of care, Re-evaluation by your physician. snw
== END 2018-11-24 11:22 | disposition home or self-care (01) ==
LOC: ER 06:17
DX: R19.7 Diarrhea, unspecified (principal); F17.210 Nicotine dependence, cigarettes, uncomplicated; Z88.0 Allergy status to penicillin; Z88.1 Allergy status to other antibiotic agents; Z88.3 Allergy status to other anti-infective agents; Z91.013 Allergy to seafood; Z85.41 Personal history of malignant neoplasm of cervix uteri
CPT/HCPCS: 87088; 87086; 81025; J2765; J2550; J7030 ×2; 81003; 81015; 96361; 96374; 96375; 99284

== ENCOUNTER 2018-12-04 07:53 | Day surgery (SDC) | payer OTHER ==
[2018-12-03 15:09] LABS: Absolute Lymphocytes (CBC) 1.8 K/uL (0.7-4.9); Basophils % 0.5 % (0-1.3); Hematocrit 41.4 % (36.0-45.0); Lymphocytes % 29.1 % (15.3-44.8); MPV 8.3 fL (7.6-11.3); RBC Red Blood Cell Count 4.41 M/uL (3.86-4.86)
[2018-12-03 15:27] LABS: Potassium 3.8 mmol/L (3.5-5.1)
--- OUTSIDE RECORDS SUMMARY | 2018-12-04 07:56 | XMS REPORT ---
:1970 [facility] Address [address] [place] [address] [address]. [address] [place] [address] Care Team Providers Name Role Phone Unavailable Unavailable Unavailable Problems This patient has no known problems. Allergies, Adverse Reactions, Alerts This patient has no known allergies or adverse reactions. Medications This patient has no known medications.
--- OUTSIDE RECORDS SUMMARY | 2018-12-04 07:56 | XMS REPORT ---
[...] Dosage System Date Date BusPIRone HCl ND 66906055868 7.5 MG Orally Nov 10, Active 1 tablet Twice a day 2018 as needed for anxiety Clonazepam ND 57369074677 0.5 MG Orally Active 1 tablet Once a day at bedtime Sertraline HCl ND 26005071273 100 MG Orally Active 1 tablet Once a day Omeprazole ND 44411846074 20 MG Orally Nov 10, Active 1 capsule Once a day 2018 Results No Known Results Summary Purpose eClinicalWorks Submission
[2018-12-04] MEDS ORDERED: PROPOFOL 200 MG/20 ML VIAL IV ONE (08:29)
[2018-12-04] MEDS ORDERED: LIDOCAINE 1% MPF 2 ML AMPULE ONE (08:29)
[2018-12-04] MEDS ORDERED: ROCURONIUM 50 MG/5 ML VIAL IV ONE (08:29)
[2018-12-04] MEDS ORDERED: FENTANYL CITR 100 MCG/2 ML ONE (08:29)
[2018-12-04] MEDS ORDERED: ONDANSETRON 4 MG/2 ML VIAL ONE ×2 (08:29→10:42)
[2018-12-04] MEDS ORDERED: MIDAZOLAM HCL 2 MG/2 ML INJ ONE (08:29)
[2018-12-04] MEDS ORDERED: Ringers Lactate 1,000 ML IV ONE (08:31)
[2018-12-04] MEDS ORDERED: CEFOXITIN/SWI 1gm 1 GM/10 ML SYR ONE (08:59)
[2018-12-04] MEDS ORDERED: Mastisol Adhesive Liq ONE (10:16)
[2018-12-04] MEDS ORDERED: GLYCOPYRROLATE 0.2 MG/ML SYR ONE (10:19)
[2018-12-04] MEDS ORDERED: NEOSTIGMINE 1 MG/ML -10 ML VIAL ONE (10:19)
[2018-12-04] MEDS: HYDROMORPHONE HCL 1 MG/ML INJ ONE ×6 (10:41→11:07)
[2018-12-04] MEDS ORDERED: METOCLOPRAMIDE 10 MG/2mL INJ ONE (12:56)
--- NOTE | 2018-12-04 22:03 | OP ---
Date of Procedure: 12/04/2018 Surgeon: Mainor Medina MD Park Guard: BENY Padilla Preoperative Diagnoses: Chronic cholecystitis, biliary dyskinesia. 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 Procedure Performed: Laparoscopic cholecystectomy and lysis of adhesions. Estimated Blood Loss: Minimal. Specimen: Gallbladder. Findings: As above. Anesthesia: General. Complications: None Disposition: Patient tolerated the procedure in stable condition and taken to Recovery in good gener al condition. Procedure In Detail: Patient was brought to the OR and placed in supine position. General anesthesi a was begun. Patient was prepped and draped in usual sterile fashion. Marcaine 0.5% was infiltrated locally. A 15-blade was used to make a 1 cm infraumbilical midline incision. Subcutaneous tissue d ivided. The fascia was identified and divided. #1 Vicryl stay suture was placed. Peritoneal cavity was entered by sharp and blunt dissection. A 12 mm trocar was placed into the peritoneal cavity und er direct vision. Pneumoperitoneum was established. Then, three 5 mm trocars were placed, 1 in the epigastrium just to the right of midline, 2 in the right subcostal region. Laparoscopy revealed exte nsive adhesions to the liver on both sides with Fkbi-Abjb-Kgrqai type adhesions as well as adhesions to the gallbladder. All the adhesions were lysed. Approximately 15 to 20 minutes of time was spent with the adhesions and then, fundus was identified after these adhesions were taken down, retracted s uperiorly. Infundibulum was identified and retracted inferolaterally. Cystic duct and cystic artery were clearly identified with blunt dissection. Clips were placed. Both structures divided. Cauter y was used to remove the gallbladder from the liver bed. Bleeding on the liver bed was controlled wi th cautery. The gallbladder was retrieved through the umbilicus via an EndoCatch bag. Right upper q uadrant was irrigated. Effluent was clear. No evidence of bleeding or bile leakage appreciated. [place] bsequently, all trocars were removed under direct vision. Stay sutures were tied to each other to ap proximate the fascial defect. Subcutaneous wound was irrigated, bleeding controlled with cautery, 3- 0 chromic used to approximate the subcutaneous tissue and close skin. Sterile dressing was applied. Patient was awakened and taken to Recovery in good general condition. /MODL Voice ID: [id number] Report ID: [id number]
--- NOTE | 2018-12-04 22:18 | DS ---
Date of Discharge: 12/04/2018 Patient will go to Day Surgery and home when stable. Disposition: Home. Condition: Stable. Discharge Instructions: Resume home meds and diet. Activity as tolerated. No heavy lifting. Remov e outer dressing in 2 days. Shower. Keep wound clean and dry. Keep Steri-Strips on at all times. Incentive spirometry as ordered. Tylenol No. 3 one tablet p.o. q.4 p.r.n. pain. Follow up in my off ice in 1 week, call for appointment. LAURIE/DONNA Voice ID: [id number] Report ID: [id number]
== END 2018-12-04 13:26 | disposition home or self-care (01) ==
LOC: OR 07:53
PROVIDERS: ATTEND Surgery
PROC: 0DNW4ZZ Release Peritoneum, Percutaneous Endoscopic Approach (ICD-10-PCS; 2018-12-04)
PROC: 0FT44ZZ Resection of Gallbladder, Percutaneous Endoscopic Approach (ICD-10-PCS; principal; 2018-12-04 10:00)
DX: K81.1 Chronic cholecystitis (principal); K82.8 Other specified diseases of gallbladder; K66.0 Peritoneal adhesions (postprocedural) (postinfection); F17.200 Nicotine dependence, unspecified, uncomplicated; Z88.0 Allergy status to penicillin; Z91.013 Allergy to seafood; Z83.3 Family history of diabetes mellitus; Z82.49 Family history of ischemic heart disease and other diseases of the circulatory system
CPT/HCPCS: 85025; 80048; 36415; 88304; 47562; 49329; J2704; J2710; J2765; J2250; J3010; J2001; J1170 ×3; J2405 ×2

== ENCOUNTER 2020-12-31 14:27 | Emergency (ER) | payer BC ==
[2020-12-31] MEDS ORDERED: ASPIRIN 81 MG CHEWABLE TABLET ONE (15:16)
[2020-12-31] MEDS ORDERED: FAMOTIDINE 20 MG/2 ML VIAL IV ONE (15:16)
[2020-12-31 15:32] LABS: Absolute Lymphocytes (CBC) 2.2 K/uL (0.7-4.9); Basophils % 1.2 % (0-1.3); Hematocrit 44.2 % (36.0-45.0); Lymphocytes % 31.9 % (15.3-44.8); RBC Red Blood Cell Count 4.68 M/uL (3.86-4.86)
[2020-12-31 15:43] LABS: Protime INR 1.1
[2020-12-31 15:57] LABS: ALT/SGPT 28 U/L (12-78); AST/SGOT 13 U/L (15-37); Albumin 3.7 g/dL (3.4-5.0); Alkaline Phosphatase 74 U/L (45-117); BUN Blood Urea Nitrogen 11 mg/dL (7-18); Bicarbonate 26 mmol/L (21-32); Bilirubin Direct < 0.1 mg/dL (0-0.2); Bilirubin Total 0.2 mg/dL (0.2-1.0); Glucose Level 114 mg/dL (74-106); Lipase 91 U/L (73-393); Magnesium 2.2 mg/dL (1.8-2.4); NT PRO-BNP 110 pg/mL (<125); Potassium 3.7 mmol/L (3.5-5.1); Protein, Total 7.3 g/dL (6.4-8.2); Sodium Level 143 mmol/L (136-145); Troponin (Emerg Dept Use Only) < 0.02 ng/mL (0.0-0.045)
[2020-12-31] MEDS ORDERED: DIPHENHYDRAMINE 50 MG/ML VIAL ONE (16:01)
[2020-12-31] MEDS ORDERED: METHYLPREDNISOLONE 125 MG INJ ONE (16:01)
--- NOTE | 2020-12-31 16:31 | RAD REPORT ---
EXAM DESCRIPTION: CTAngio Aorta For Dissection - 12/31/2020 4:17 pm CLINICAL HISTORY: Dissection;PE COMPARISON: No comparisons TECHNIQUE: CT of the chest, abdomen, and pelvis was performed. All CT scans are performed using dose optimization technique as appropriate and may include automated exposure control or mA/KV adjustment according to patient size. FINDINGS: Thorax: Chest Wall: Small nonspecific thyroid nodules. Lungs: No acute abnormality. Pleura: No effusions or pneumothorax. Zuleika/Mediastinum: No lymphadenopathy. Aorta/Pulmonary Arteries: Unremarkable Heart: Normal size. Abdomen/Pelvis: Liver: No acute abnormality or suspicious lesions. Biliary: Cholecystectomy . Stomach: No significant focal abnormality. Duodenum: No significant focal abnormality. Pancreas: No significant abnormality. Spleen: No significant abnormality. Adrenal: No suspicious lesions. Kidney/ureter: No hydronephrosis. No renal calculi. Retroperitoneum: No retroperitoneal adenopathy. Vascular: No aneurysm. Bowel: No significant focal abnormality. Normal appendix . Peritoneum: No ascites or free air. Bladder: Grossly unremarkable. Reproductive: No adnexal masses. Bones: No acute fracture. Other: n/a IMPRESSION: Negative for aortic aneurysm, aortic dissection, or pulmonary embolus. No acute findings within the chest, abdomen, or pelvis.
--- NOTE | 2020-12-31 16:33 | RAD REPORT ---
EXAM DESCRIPTION: RAD - Chest Single View - 12/31/2020 2:56 pm CLINICAL HISTORY: COUGH COMPARISON: Chest Pa And Lat (2 Views) dated 11/20/2017 FINDINGS: Lines: None. Lungs: No evidence of edema or pneumonia. Pleural: No significant pleural effusions or pneumothorax. Cardiac: The heart size is within normal limits. Bones: No acute fractures. Other: IMPRESSION: No acute cardiopulmonary disease.
--- NOTE | 2020-12-31 16:39 | EDPHYS ---
Physician Documentation [facility] Name: Tyra Kidd Age: 50 yrs Sex: Female : 1970 Arrival Date: 12/31/2020 Time: 14:29 Bed 16 Private MD: ED Physician Alonzo Larose HPI: 12/31 15:25 This 50 yrs old Female presents to ER via Ambulatory with complaints of Chest chandrakant Tightness. 15:25 The patient or guardian reports chest pain that is located primarily in the substernal chandrakant area. Onset: 2 day(s) ago. The pain does not radiate. Associated signs and symptoms: Pertinent positives: shortness of breath. The chest pain is described as a pressure. Duration: The patient or guardian reports multiple episodes, that have now resolved. Severity of pain: At its worst the pain was mild moderate in the emergency department the pain has improved mildly. The patient has not experienced similar symptoms in the past. Historical: - Allergies: 14:49 Clindamycin; aj2 14:49 Erythromycin; aj2 14:49 SHELLFISH; aj2 14:49 PENICILLINS; aj2 14:49 Zithromax; aj2 - Home Meds: 14:49 Carafate Oral [Active]; Protonix 20 mg Oral tab 1 tab once daily [Active]; sertraline aj2 50 mg Oral tab 1 tab once daily [Active]; sucralfate 1 gram Oral tab 4 times per day [Active]; - PMHx: 14:49 cervical CA; aj2 - Immunization history:: Adult Immunizations up to date, Client reports having NOT received the Covid vaccine. - Social history:: Smoking status: Patient reports the use of cigarette tobacco products, smokes one pack cigarettes per day. Smoking status: Patient reports the use of cigarette tobacco products, smokes one pack cigarettes per day. - Family history:: not pertinent. ROS: 15:25 Constitutional: Negative for fever, chills, and weight loss, Eyes: Negative for injury, chandrakant pain, redness, and discharge, ENT: Negative for injury, pain, and discharge, Neck: Negative for injury, pain, and swelling, Cardiovascular: Negative for chest pain, palpitations, and edema, Respiratory: Negative for shortness of breath, cough, wheezing, and pleuritic chest pain, Abdomen/GI: Negative for abdominal pain, nausea, vomiting, diarrhea, and constipation, Back: Negative for injury and pain, : Negative for injury, bleeding, discharge, and swelling, MS/Extremity: Negative for injury and deformity, Skin: Negative for injury, rash, and discoloration, Neuro: Negative for headache, weakness, numbness, tingling, and seizure, Psych: Negative for depression, anxiety, suicide ideation, homicidal ideation, and hallucinations, Allergy/Immunology: Negative for hives, rash, and allergies, Endocrine: Negative for neck swelling, polydipsia, polyuria, polyphagia, and marked weight changes, Hematologic/Lymphatic: Negative for swollen nodes, abnormal bleeding, and unusual bruising. 15:25 MS/extremity: Negative for acute changes. Exam: 15:25 Constitutional: This is a well developed, well nourished patient who is awake, alert, chandrakant and in no acute distress. Head/Face: Normocephalic, atraumatic. Eyes: Pupils equal round and reactive to light, extra-ocular motions intact. Lids and lashes normal. Conjunctiva and sclera are non-icteric and not injected. Cornea within normal limits. Periorbital areas with no swelling, redness, or edema. ENT: Nares patent. No nasal discharge, no septal abnormalities noted. Tympanic membranes are normal and external auditory canals are clear. Oropharynx with no redness, swelling, or masses, exudates, or evidence of obstruction, uvula midline. Mucous membranes moist. Neck: Trachea midline, no thyromegaly or masses palpated, and no cervical lymphadenopathy. Supple, full range of motion without nuchal rigidity, or vertebral point tenderness. No Meningismus. Chest/axilla: Normal chest wall appearance and motion. Nontender with no deformity. No lesions are appreciated. Cardiovascular: Regular rate and rhythm with a normal S1 and S2. No gallops, murmurs, or rubs. Normal PMI, no JVD. No pulse deficits. Respiratory: Lungs have equal breath sounds bilaterally, clear to auscultation and percussion. No rales, rhonchi or wheezes noted. No increased work of breathing, no retractions or nasal flaring. Abdomen/GI: Soft, non-tender, with normal bowel sounds. No distension or tympany. No guarding or rebound. No evidence of tenderness throughout. Back: No spinal tenderness. No costovertebral tenderness. Full range of motion. Skin: Warm, dry with normal turgor. Normal color with no rashes, no lesions, and no evidence of cellulitis. MS/ Extremity: Pulses equal, no cyanosis. Neurovascular intact. Full, normal range of motion. Neuro: Awake and alert, GCS 15, oriented to person, place, time, and situation. Cranial nerves II-XII grossly intact. Motor strength 5/5 in all extremities. Sensory grossly intact. Cerebellar exam normal. Normal gait. Psych: Awake, alert, with orientation to person, place and time. Behavior, mood, and affect are within normal limits. 15:25 Musculoskeletal/extremity: DVT Exam: No signs of deep vein thrombosis. no pain, no swelling, no tenderness, negative Homans' sign noted on exam, no appreciated bluish discoloration, no erythema, no increased warmth. 15:42 ECG was reviewed by the Attending Physician. [facility] 17:36 ECG was reviewed by the Attending Physician. [facility] Vital Signs: 14:48 BP 104 / 63; Pulse 85; Resp 20; Temp 98.4(O); Pulse Ox 96% on R/A; Weight 61.69 kg; tr6 Height 5 ft. 2 in. (157.48 cm); Pain 0/10; 14:49 BP 104 / 63; Pulse 88; Resp 18; Pulse Ox 86% ; aj2 15:40 BP 103 / 67; Pulse 67; Resp 18; Temp 98.4; Pulse Ox 97% ; aj2 14:48 Body Mass Index 24.87 (61.69 kg, 157.48 cm) tr6 MDM: 14:36 Patient medically screened. [facility] 15:36 Differential diagnosis: abnormal EKG, anxiety, coronary artery disease chest wall pain, chandrakant congestive heart failure cholecystitis, Cholelithiasis hiatal hernia, pancreatitis, pneumonia, pulmonary embolus, stable angina, thoracic aortic disection, unstable angina. HEART Score: History: Slightly Suspicious (0), ECG: Normal (0), Age: > 45 and < 65 years (1), Risk Factors: 1 or 2 risk factors (1), [Hypercholesterolemia] [Active Smoker] Troponin: < or = 1 x Normal Limit (0), Total Score = 2. The patient was given aspirin in the Emergency Department. The patient's deep vein thrombosis risk score was calculated as follows: Total Score: 0. This patient was found to be at low risk for a deep vein thrombosis by using the Well's assessment criteria. The patient's pulmonary embolism risk score was calculated as follows: Total Score: 0-2 points. This patient was found to be at low risk for a pulmonary embolism by using the Well's assessment criteria. SULEMA Risk Score: TOTAL SCORE = 0. Data reviewed: vital signs, nurses notes, lab test result(s), EKG, radiologic studies, CT scan, plain films. Data interpreted: threat monitoring analyst: rate is 88 beats/min, rhythm is regular, Pulse oximetry: on room air is 86 %. Test interpretation: by ED physician or midlevel provider: ECG, plain radiologic studies. Counseling: I had a detailed discussion with the patient and/or guardian regarding: the historical points, exam findings, and any diagnostic results supporting the discharge/admit diagnosis, lab results, radiology results. 12/31 14:39 Order name: Basic Metabolic Panel; Complete Time: 16:11 chandrakant 12/31 14:39 Order name: CBC with Diff; Complete Time: 16:11 chandrakant 12/31 14:39 Order name: LFT's; Complete Time: 16:11 chandrakant 12/31 14:39 Order name: Magnesium; Complete Time: 16:11 chandrakant 12/31 14:39 Order name: NT PRO-BNP; Complete Time: 16:11 chandrakant 12/31 14:39 Order name: PT-INR; Complete Time: 17:17 chandrakant 12/31 14:39 Order name: Troponin (emerg Dept Use Only); Complete Time: 16:11 chandrakant 12/31 14:39 Order name: XRAY Chest (1 view); Complete Time: 17:17 chandrakant 12/31 14:39 Order name: Lipase; Complete Time: 16:11 chandrakant 12/31 15:25 Order name: CT Aorta for Dissection; Complete Time: 17:17 chandrakant 12/31 16:37 Order name: Troponin (emerg Dept Use Only); Complete Time: 17:35 chandrakant 12/31 17:08 Order name: SARS-COV-2 RT PCR; Complete Time: 17:17 EDSD 12/31 14:39 Order name: EKG; Complete Time: 14:39 chandrakant 12/31 14:39 Order name: Cardiac monitoring; Complete Time: 17:09 chandrakant 12/31 14:39 Order name: EKG - Nurse/Tech; Complete Time: 15:37 [facility] 12/31 14:39 Order name: IV Saline Lock; Complete Time: 15:14 [facility] 12/31 14:39 Order name: Labs collected and sent; Complete Time: 15:14 [facility] 12/31 14:39 Order name: O2 Per Protocol; Complete Time: 15:37 [facility] 12/31 14:39 Order name: O2 Sat Monitoring; Complete Time: 15:37 [facility] 12/31 14:39 Order name: Urine Dipstick-Ancillary (obtain specimen) [facility] 12/31 16:37 Order name: EKG; Complete Time: 16:38 [facility] 12/31 16:37 Order name: EKG - Nurse/Tech; Complete Time: 17:06 [facility] EC:42 Rate is 75 beats/min. Rhythm is regular. QRS [place] is Normal. [place] interval is normal. QRS chandrakant interval is normal. QT interval is normal. No Q waves. T waves are Normal. No ST changes noted. Clinical impression: Normal ECG and No evidence of ischemia. Interpreted by me. Reviewed by me. 17:36 Rate is 65 beats/min. Rhythm is regular. QRS [place] is Normal. [place] interval is normal. QRS chandrakant interval is normal. QT interval is normal. No Q waves. T waves are Normal. No ST changes noted. Clinical impression: Normal ECG and No evidence of ischemia. Interpreted by me. Reviewed by me. Administered Medications: 15:14 Drug: Aspirin Chewable Tablet 324 mg Route: PO; tc5 15:14 Drug: Pepcid (famotidine) 20 mg Route: IVP; Site: left antecubital; tc5 15:37 Drug: Benadryl (diphenhydrAMINE) 25 mg Route: IVP; Site: left antecubital; aj2 15:37 Drug: SOLU-Medrol (methylPrednisoLONE) 125 mg Route: IVP; Site: left antecubital; aj2 Disposition Summary: 12/31/20 16:38 Discharge Ordered Location: Home chandrakant Problem: new chandrakant Symptoms: have improved chandrakant Condition: Stable chandrakant Diagnosis - Chest pain on breathing chandrakant - Tobacco abuse counseling chandrakant - Tobacco use chandrakant Followup: chandrakant - With: Private Physician - When: 2 - 3 days - Reason: Recheck today's complaints, Continuance of care, Re-evaluation by your physician Followup: chandrakant - With: Josafat Gardiner MD - When: 2 - 3 days - Reason: Recheck today's complaints, Re-evaluation by your physician Discharge Instructions: - Discharge Summary Sheet chandrakant - Nonspecific Chest Pain, Adult chandrakant - Chest Wall Pain chandrakant - Steps to Quit Smoking chandrakant - Health Risks of Smoking chandrakant - Nonspecific Chest Pain, Adult, [id number] chandrakant - Steps to Quit Smoking, Dpit-oe-Napi chandrakant - Aspirin and Your Heart chandrakant Forms: - Medication Reconciliation Form chandrakant - Thank You Letter chandrakant - Antibiotic Education chandrakant - Prescription Opioid Use chandrakant Prescriptions: - Nitrostat 0.3 mg Sublingual Tablet, Sublingual - place 1 tablet by SUBLINGUAL route one time As needed - take one tablet 5-10 chandrakant minutes prior to activities which might precipitate an attack; 25 tablet; Refills: 0, Product Selection Permitted Signatures: Dispatcher [employer] EDMS Alonzo Larose MD MD cha Ramnanan, Tiffany, RN RN tr6 Magdi Marie2 Lexis Looney RN RN tc5 Corrections: (The following items were deleted from the chart) 15:37 15:11 Chest For PE Angio+CT.RAD.BRZ ordered. EDMS EDMS 16:17 14:39 CORONAVIRUS+MR.LAB.BRZ ordered. EDMS EDMS
--- NOTE | 2020-12-31 16:39 | ER ---
Nurse's Notes [facility] Name: Tyra Kidd Age: 50 yrs Sex: Female : 1970 Arrival Date: 12/31/2020 Time: 14:29 Bed 16 Private MD: Diagnosis: Chest pain on breathing;Tobacco abuse counseling;Tobacco use Presentation: 12/31 14:48 Chief complaint: Patient states: "since Friday evening i've had SOB and chest tr6 tightness, but not chest pain. just feel like i can't take a deep breath." sinus drainage that's worse in the morning. pt able to speak in full sentences easily. Coronavirus screen: Vaccine status: Patient reports being unvaccinated. shortness of breath. Ebola Screen: No symptoms or risks identified at this time. Initial Sepsis Screen: Does the patient meet any 2 criteria? No. Patient's initial sepsis screen is negative. Does the patient have a suspected source of infection? No. Patient's initial sepsis screen is negative. Risk Assessment: Do you want to hurt yourself or someone else? Patient reports no desire to harm self or others. Onset of symptoms was December 29, 2020. 14:48 Method Of Arrival: Ambulatory tr6 14:48 Acuity: NADYA 3 tr6 Triage Assessment: 14:51 General: Appears in no apparent distress. comfortable, Behavior is calm, cooperative, tr6 appropriate for age. Pain: Denies pain. EENT: Reports "sinus drainage". Neuro: No deficits noted. Cardiovascular: Rhythm is sinus rhythm. Cardiovascular:. Respiratory: No deficits noted. Respiratory: No deficits noted. Reports shortness of breath. GI: No deficits noted. : No deficits noted. Derm: No deficits noted. Musculoskeletal: No deficits noted. Historical: - Allergies: 14:49 Clindamycin; aj2 14:49 Erythromycin; aj2 14:49 SHELLFISH; aj2 14:49 PENICILLINS; aj2 14:49 Zithromax; aj2 - Home Meds: 14:49 Carafate Oral [Active]; Protonix 20 mg Oral tab 1 tab once daily [Active]; sertraline aj2 50 mg Oral tab 1 tab once daily [Active]; sucralfate 1 gram Oral tab 4 times per day [Active]; - PMHx: 14:49 cervical CA; aj2 - Immunization history:: Adult Immunizations up to date, Client reports having NOT received the Covid vaccine. - Social history:: Smoking status: Patient reports the use of cigarette tobacco products, smokes one pack cigarettes per day. Smoking status: Patient reports the use of cigarette tobacco products, smokes one pack cigarettes per day. - Family history:: not pertinent. Screenin:49 Abuse screen: Denies threats or abuse. Denies injuries from another. Nutritional aj2 screening: No deficits noted. Tuberculosis screening: No symptoms or risk factors identified. Fall Risk None identified. Assessment: 14:48 Pain: Denies pain. aj2 14:52 Pain: Pain does not radiate. Pain began gradually. tr6 Vital Signs: 14:48 BP 104 / 63; Pulse 85; Resp 20; Temp 98.4(O); Pulse Ox 96% on R/A; Weight 61.69 kg; tr6 Height 5 ft. 2 in. (157.48 cm); Pain 0/10; 14:49 BP 104 / 63; Pulse 88; Resp 18; Pulse Ox 86% ; aj2 15:40 BP 103 / 67; Pulse 67; Resp 18; Temp 98.4; Pulse Ox 97% ; aj2 14:48 Body Mass Index 24.87 (61.69 kg, 157.48 cm) tr6 ED Course: 14:29 Patient arrived in ED. as 14:36 Alonzo Larose MD is Attending Physician. [facility] 14:47 Magdi Marie is Primary Nurse. aj2 14:49 No apparent distress. Resting quietly. aj2 14:49 Patient has correct armband on for positive identification. aj2 14:49 Pulse ox on. NIBP on. aj2 14:49 No provider procedures requiring assistance completed. Patient maintains SpO2 aj2 saturation greater than 95% on room air. 14:51 Triage completed. tr6 14:53 Patient placed in an exam room. tr6 14:57 XRAY Chest (1 view) In Process Unspecified. EDMS 15:13 Inserted saline lock: 20 gauge in left antecubital area, using aseptic technique. Blood tc5 collected. 16:17 CT Aorta for Dissection In Process Unspecified. EDMS 16:38 Josafat Gardiner MD is Referral Physician. chandrakant Administered Medications: 15:14 Drug: Aspirin Chewable Tablet 324 mg Route: PO; tc5 15:14 Drug: Pepcid (famotidine) 20 mg Route: IVP; Site: left antecubital; tc5 15:37 Drug: Benadryl (diphenhydrAMINE) 25 mg Route: IVP; Site: left antecubital; aj2 15:37 Drug: SOLU-Medrol (methylPrednisoLONE) 125 mg Route: IVP; Site: left antecubital; aj2 Outcome: 16:38 Discharge ordered by MD. stallings 17:41 Discharged to home ambulatory. aj2 17:41 Condition: stable 17:41 Discharge instructions given to patient, Instructed on discharge instructions, follow up and referral plans. Demonstrated understanding of instructions, follow-up care, medications, Prescriptions given X 1. 17:42 Patient left the ED. aj2 Signatures: Dispatcher [employer] EDAlonzo Feliciano MD MD cha Martinez, Amelia as Ramnanan, Tiffany, RN RN tr6 Magdi Marie aj2 Lexis Looney RN RN tc5
--- NOTE | 2021-01-02 18:14 | EKG ---
Test Date: 2020-12-31 Test Time: 16:53:16 Machine Lay Out Worker: [employer] MEASUREMENT RESULTS: Intervals: Rate: 65 HI: 140 QRSD: 82 QT: 412 QTc: 428 [place]: P: 55 HI: 140 QRS: 87 T: 60 INTERPRETIVE STATEMENTS: Sinus rhythm with premature supraventricular complexes Otherwise normal ECG Compared to ECG 12/31/2020 15:10:20 Atrial premature complex(es) now present Electronically Signed On 01-02-21 18:06:30 CDT by Josafat Gardiner
--- NOTE | 2021-01-02 18:15 | EKG ---
Test Date: 2020-12-31 Test Time: 15:10:20 Graphics Specialist: KALIE MEASUREMENT RESULTS: Intervals: Rate: 75 MD: 140 QRSD: 86 QT: 380 QTc: 424 [place]: P: 60 MD: 140 QRS: 88 T: 62 INTERPRETIVE STATEMENTS: Normal sinus rhythm Normal ECG Compared to ECG 11/15/2018 13:10:15 No significant changes Electronically Signed On 01-02-21 18:06:37 CDT by Josafat Gardiner
== END 2020-12-31 17:42 | disposition home or self-care (01) ==
LOC: ER 14:27
DX: R07.1 Chest pain on breathing (principal); Z72.0 Tobacco use; Z71.6 Tobacco abuse counseling; Z20.822 Contact with and (suspected) exposure to COVID-19; Z88.0 Allergy status to penicillin; Z88.3 Allergy status to other anti-infective agents
CPT/HCPCS: 93005 ×2; 85025; 80048; 36415; 83735; 85610; 80076; 84484 ×2; 83690; 83880; 71275; 74175; 71045; 96375; 96374; 99285; U0003; Q9967; J1200; J2930